=== PATIENT | male | born 1990 | race Caucasian/White ===

== ENCOUNTER 2024-07-07 09:12 | Emergency (ER) | payer OTHER ==
[2024-07-07 09:26] VITALS: BP 118/67; O2SAT 99
--- NOTE | 2024-07-07 09:58 | ED Physician Documentation ---
History of Present Illness - Stated complaint Stated Complaint: LT LEG PX - Chief complaint Chief Complaint: Ext Problem - History obtained from History obtained from: Patient - History of Present Illness Pain level max: 7 Pain level now: 4 - Additonal information Additional information: 34-year-old male, [employer] [place], presents to the emergency department stating that he has had issues with his left back and left hip before, today he states that the pain is radiating down the back of the leg down to his left foot. Also has intermittent numbness the left lower extremity. No swelling. No skin changes. Worse with walking, better with rest. No loss of bowel or bladder control. Does not use IV drugs. No trauma. No fevers. No chills. Has not taken anything for pain. History of sciatica. Review of Systems Constitutional: denies: Fever, Chills GI: denies: Vomiting, Diarrhea Skin: denies: Rash Musculoskeletal: denies: Neck pain Neurologic: denies: Focal weakness, Numbness, Headache PD PAST MEDICAL HISTORY - Past Medical History Past Medical History: No - Past Surgical History Past Surgical History: Yes General: Other - Present Medications Home Medications: Ambulatory Orders Medication Instructions Recorded Confirmed HYDROcod/ACETAM 5/325 [[place] 5/325] 1 - 2 ea PO Q6H PRN #10 tablet 07/07/24 Ibuprofen [Motrin] 800 mg PO Q8H PRN #30 tablet 07/07/24 methylPREDNISolone [Medrol] 4 mg PO DAILY #1 each 07/07/24 - Allergies Allergies/Adverse Reactions: Allergies Allergy/AdvReac Type Severity Reaction Status Date / Time Penicillins Allergy Anaphylaxis Verified 07/07/24 09:19 - Social History Does the pt smoke?: No Smoking Status: Never smoker Does the pt drink ETOH?: Yes Does the pt have substance abuse?: No - Immunizations Immunizations are current?: Yes PD ED PE NORMAL - Vitals Vital signs reviewed: Yes - General General: Alert and oriented X 3, No acute distress - HEENT HEENT: Moist mucous membranes - Neck Neck: Supple, no meningeal sign - Cardiac Cardiac: RRR - Respiratory Respiratory: No respiratory distress, Clear bilaterally - Abdomen Abdomen: Soft, Non tender, Non distended - Back Back: No spinal TTP (No midline tenderness to palpation or percussion. No step- off or deformity.) - Derm Derm: Warm and dry - Extremities Extremities: No edema, Other (Normal bilateral lower extremity patellar and ankle jerk reflexes. Normal great toe extension bilaterally. no saddle anesthesia) - Neuro Neuro: Alert and oriented X 3, No motor deficit, No sensory deficit - Psych Psych: Normal mood, Normal affect Results - Vitals Vitals: Vital Signs - 24 hr 07/07/24 09:19 Temperature 36.8 C Heart Rate 94 Respiratory 16 Rate Blood Pressure 118/67 O2 Saturation 99 PD Medical Decision Making - ED course Complexity details: considered differential (No cauda equina, no spinal epidural abscess, no fracture, no aortic dissection or evidence of aneursym rupture), d/w patient ED course: 34-year-old male with what appears to be left-sided sciatica. No red flags. No evidence of cauda equina, epidural abscess. No fevers. No chills. No indication for emergent imaging. No loss of bowel or bladder control. Ambulating well. Will place on steroids and anti-inflammatories for home. Will have him follow-up with his PCP for further care and likely referral to physical therapy. Patient counseled regarding signs and symptoms for which I believe and urgent re-evaluation would be necessary. Patient with good understanding of and agreement to plan and is comfortable going home at this time This document was made in part using voice recognition software. While efforts are made to proofread this document, sound alike and grammatical errors may occur. Departure - Departure Disposition: 01 Home, Self Care Clinical Impression: Sciatica Qualifiers: Laterality: left Qualified Code(s): M54.32 - Sciatica, left side Condition: Good Instructions: ED Sciatica Follow-Up: CARLIE HERRING MD [Primary Care Provider] - Within 1 week Prescriptions: methylPREDNISolone [Medrol] 4 mg PO DAILY #1 each Ibuprofen [Motrin] 800 mg PO Q8H PRN #30 tablet PRN Reason: PAIN &/OR FEVER HYDROcod/ACETAM 5/325 [[place] 5/325] 1 - 2 ea PO Q6H PRN #10 tablet PRN Reason: Pain Comments: You appear to have sciatica today. [place] Your prescriptions were sent to [facility] in [place]. Please return if you worsen. I am prescribing a short course of narcotic pain medication for you. These are potentially dangerous and addictive medications that should be used carefully. These medications may constipate you. Take an egie-xzw-lelazci stool softener (docusate) twice daily with plenty of water while taking these medications. If you go 24 hours without a bowel movement, take grvi-uzr-ssqvyxn miralax, per package instructions. Do not drink or drive while taking these medications. If you received narcotic or sedating medications while in the emergency department, do not drive for 24 hours. Store this medication in a safe, secure place and out of reach of children. It is a violation of federal law to give or sell this medication to another person or to use in a manner other than prescribed. The ED will not refill narcotic prescriptions, including prescriptions lost or stolen. To dispose of unwanted medications: 1. [facility] [address] in [place] has a medication drop box. They accept prescription medications (in pill form) Monday through Monday 9:00 a.m. to 5:00 p.m. 2. [facility] [employer] accepts prescription medications (in pill form only) for disposal year round. Call for more information. 3. Contact the [facility] for the next [facility] sponsored prescription drug collection event. , [phone], or [phone]; Forms: PCP List Discharge Date/Time: 07/07/24 10:10
[2024-07-07] MEDS: KETOROLAC 60 MG/2 ML VIAL IM STA (10:02)
[2024-07-07] MEDS: DEXAMETHASONE 10 MG/ML VIAL PO STA (10:02)
== END 2024-07-07 10:10 | disposition home or self-care (01) ==
LOC: ED 09:12
DX: M54.32 Sciatica, left side (principal)
CPT/HCPCS: 96372; 99283

== ENCOUNTER 2024-08-11 12:57 | Emergency (ER) | payer OTHER ==
[2024-08-11 13:08] VITALS: BP 120/88; O2SAT 97
--- NOTE | 2024-08-11 13:32 | ED Physician Documentation ---
PD HPI LOWER EXT INJURY - Stated complaint Stated Complaint: RT FOOT TOE INJ - Chief complaint Chief Complaint: Trauma Ext - Additional information Additional information: 34-year-old male presents emergency department for stubbed left toe injury. Patient is complaining specifically of second and third toe pain with mild bruising. He is able to ambulate without difficulty no obvious deformity there is obvious swelling and ecchymosis to the left second toe. PD PAST MEDICAL HISTORY - Past Medical History Past Medical History: No - Past Surgical History Past Surgical History: Yes General: Other - Present Medications Home Medications: Ambulatory Orders Medication Instructions Recorded Confirmed No Known Home Medications 08/11/24 08/11/24 - Allergies Allergies/Adverse Reactions: Allergies Allergy/AdvReac Type Severity Reaction Status Date / Time Penicillins Allergy Anaphylaxis Verified 08/11/24 13:14 - Social History Does the pt smoke?: No Smoking Status: Never smoker Does the pt drink ETOH?: Yes Does the pt have substance abuse?: No - Immunizations Immunizations are current?: Yes PD ED PE NORMAL - Derm Derm: Other (Left 2nd toe: toenail intact, no Subungual hematoma, ecchymosis to toe full range of motion tenderness with palpation throughout entire toe. Left third toe appears within normal limits, tenderness with palpation) Results - Vitals Vitals: Vital Signs - 24 hr 08/11/24 13:02 Temperature 36.4 C L Heart Rate 67 Respiratory 16 Rate Blood Pressure 120/88 H O2 Saturation 97 Oxygen O2 Source Room air - Rads (name of study) Left foot x-rays Relevant Findings:: Final report received, EMP independent interpretation of test, Other (No acute bony abnormalities or findings) PD Medical Decision Making - ED course ED course: 34-year-old male presents emergency department for pain and tenderness to the left second and third toe after stubbing his toe. Toenails appear to be intact there is no subungual hematoma. He has full range of motion to his toes there is obvious ecchymosis to the second toe. X-rays are complete for further evaluation and no bony abnormalities are visualized. Patient offered Tylenol ibuprofen he kindly declined and said that he would like to take his own at home. Patient told that there is a chance he could lose his toenail taught how to manage this if it does happen told to follow-up with primary care provider as needed return precautions given patient safe for discharge. Departure - Departure Disposition: Home, Self Care Clinical Impression: Contusion, toes Instructions: ED Contusion Lower Ext Comments: Thank you for trusting us with your care, we have evaluated you for your toe pain after stubbed toe incident. We completed x-rays and there are no fractures visualized on x-ray. You can alternate between 1000 mg of Tylenol every 8 hours and 600 to 800 mg of ibuprofen every 6 hours for pain and discomfort apply ice 20 minutes on 1 hour off. If your toenail is to fall off make sure that you keep your nailbed nice and moist with either bacitracin or Vaseline to encourage the new nail to grow. If you start to notice any signs or symptoms of infection which include redness, swelling, drainage that is yellow or green please present to your primary care provider, urgent care, or emergency department. Forms: PCP List Discharge Date/Time: 08/11/24 13:49
--- NOTE | 2024-08-11 13:37 | XRAY Report ---
PROCEDURE: Toe(s) 2+V RT INDICATIONS: trauma TECHNIQUE: 3 views of the third toe(s) acquired. COMPARISON: None. FINDINGS: Bones: No fractures or dislocations. No suspicious bony lesions. Soft tissues: No suspicious soft tissue densities. IMPRESSION: No acute bony abnormality. Reviewed by: Hipolito Tomlinson MD on 08/11/2024 12:36 PM [facility]DT Approved by: Hipolito Tomlinson MD on 08/11/2024 12:36 PM AKDT Station ID: [id number]
== END 2024-08-11 13:49 | disposition home or self-care (01) ==
LOC: ED 12:57
DX: S90.122A Contusion of left lesser toe(s) without damage to nail, initial encounter (principal); X58.XXXA Exposure to other specified factors, initial encounter
CPT/HCPCS: 99283